=== PATIENT | male | born 1960 | race Caucasian/White ===

== ENCOUNTER → 2016-06-06 | Outpatient (REF) ==
[~2016-06-06] MED LIST: ASHW500C PO; CHRO400T4 PO; GINK120C4 PO; MAGNESIUM OXIDE; OMEGA XL; POTA99TA PO; SERRAPEPTASE; VITA1CAP7 PO; [UNRECOGNIZED DRUG - CODE] PO; [UNRECOGNIZED DRUG - CODE] PO; [UNRECOGNIZED DRUG - CODE] XX; [UNRECOGNIZED DRUG - OTHER]; [UNRECOGNIZED DRUG - OTHER]; [UNRECOGNIZED DRUG - OTHER]; [UNRECOGNIZED DRUG - OTHER] PO
--- NOTE | 2016-06-06 13:02 | REP ---
Lumbosacral spine series and 03/13, three view exam Indication: degenerative disc disease, disability Comparison: Lumbosacral spine series 09/30/14 performed at [facility]. Findings: There has been previous bilateral posterior pedicular fusion at L5-S1 with vertical stabilization lyndsay and bilateral transverse fixation screws at L5 and S1. There is a interbody disc cage within the L5 S1 disc space. There is moderate narrowing of L5 S1 disc space, stable. There is no acute fracture. Remainder the disc spaces are well maintained. Visualized portions of the SI joints are intact. Impression: Previous posterior fusion with L5 and S1 with interbody disc cage. There is persistent 5 mm or grade 1 anterolisthesis of L5 on S1. Moderate degenerative disc changes are seen at the L5 -S1 disc space. Findings are similar to prior study . Signed by Sarah St MD 06/06/2016 12:53 P
== END ==
LOC: M SMT 12:29
PROVIDERS: ATTEND Internal Medicine
DX: Z02.71 Encounter for disability determination (principal)

== ENCOUNTER → 2020-08-31 | Outpatient (CLI) | payer OTHER, MEDICAID ==
[~2020-08-31] MED LIST changes: +D-3-50003 PO; +GINK120C3 PO; -GINK120C4 PO; -VITA1CAP7 PO
--- NOTE | 2020-08-31 16:28 | REP ---
INDICATION: OCULAR PAIN, BILATERAL. COMPARISON: None. TECHNIQUE: Axial T1, T2, FLAIR, and diffusion-weighted images obtained. FINDINGS: No evidence of restricted diffusion to suggest acute infarction. No gradient echo susceptibility to suggest hemorrhage. The ventricles and extra-axial CSF spaces are within normal limits. No mass effect or midline shift. No abnormal fluid collections. Limited views of the orbits demonstrate the globes and orbits within normal limits. Retro-orbital fat appears unremarkable. IMPRESSION: No acute findings. Normal examination. <Electronically signed by Jose Antonio Carrillo > 08/31/20 [id number]
--- NOTE | 2020-08-31 16:29 | REP ---
INDICATION: OCULAR PAIN, BILATERAL. COMPARISON: None. TECHNIQUE: Dedicated views of the orbits include axial T1 and T2 weighted images, as well as coronal STIR T2 and coronal STIR images. FINDINGS: Globes and orbits appear unremarkable. Retro-orbital soft tissues appear unremarkable. Visualized intracranial structures appear unremarkable. Paranasal sinuses appear clear. IMPRESSION: Normal examination. No findings to explain the patient's symptoms. <Electronically signed by Jose Antonio Carrillo > 08/31/20 [id number]
== END ==
LOC: M PLARAD 14:32
PROVIDERS: ATTEND Ophthalmology
DX: H57.13 Ocular pain, bilateral (principal)

== ENCOUNTER 2020-09-12 15:17 | Observation (INO) | payer OTHER, MEDICAID ==
[~2020-09-12] VITALS: Ht 185.4 cm; Wt 79.9 kg
[2020-09-12 16:11] LABS: VENOUS BASE EXCESS 1.1 (-2.0-2.0); VENOUS HCO3 25.6 MEQ/L (23.0-27.0); VENOUS O2 SATURATION 49.2 % (60.0-80.0); VENOUS PARTIAL PRESSURE CO2 40.4 mmHg (38.0-50.0); VENOUS PARTIAL PRESSURE O2 25.2 mmHg (30.0-50.0); VENOUS STANDARD HCO3 24.1 MEQ/L; VENOUS TOTAL CO2 26.9 MEQ/L (24.0-28.0)
[2020-09-12 16:18] LABS: BASO % 0.2 % (0.0-1.0); HEMATOCRIT 46.2 % (42.0-52.0); HEMOGLOBIN 15.8 g/dl (13.5-17.5); LYMPH # 0.8 10^3/uL (1.5-5.0); LYMPH % 12.9 % (24.0-44.0); MEAN CORPUSCULAR HEMOGLOBIN 31.2 pg (27.0-33.0); MEAN CORPUSCULAR HGB CONC 34.2 g/dl (32.0-36.5); MEAN CORPUSCULAR VOLUME 91.3 fl (80.0-96.0); MONO # 0.4 10^3/uL (0.0-0.8); MONO % 6.1 % (2.0-8.0); NEUTROPHILS # 4.8 10^3/uL (1.5-8.5); PLATELET COUNT, AUTOMATED 113 10^3/uL (150-450); RED BLOOD COUNT 5.06 10^6/uL (4.30-6.10); WHITE BLOOD COUNT 6.1 10^3/uL (4.0-10.0)
--- NOTE | 2020-09-12 16:25 | REP ---
INDICATION: DYSPNEA/COUGH. COMPARISON: Comparison chest x-ray 21 April 2015. TECHNIQUE: Portable upright AP chest radiograph. FINDINGS: There is a granulomatous calcification in the left mid lung field. There is linear fibrosis versus platelike atelectasis in the left base and right perihilar region. No acute infiltrate is seen. Pleural angles are sharp. Cardiomediastinal silhouette is unremarkable.. Monitoring electrodes are noted. IMPRESSION: Right perihilar and left base platelike atelectasis. Old granuloma on the left. Otherwise no acute disease.. <Electronically signed by Colin Herrera > 09/12/20 [id number]
[2020-09-12] MEDS ORDERED: ONDANSETRON 4MG/2ML VIAL IV ONE (16:45)
[2020-09-12] MEDS ORDERED: ACETAMINOPHEN *IV* 1,000 MG in IV 1 EA IV ONE (16:45)
[2020-09-12 16:52] LABS: ALBUMIN 3.3 GM/DL (3.2-5.2); ALT/SGPT 43 U/L (12-78); BILIRUBIN,DIRECT 0.3 MG/DL (0.0-0.2); BILIRUBIN,TOTAL 0.9 MG/DL (0.2-1.0); CK-MB VALUE MASS < 1.0 NG/ML (<3.6); CPK CREATINE PHOSPHOKINASE 99 U/L (39-308); MB/CK RELATIVE INDEX 1.01 (< OR =4); NT-PRO BNP 69 PG/ML (<125); THYROXINE (T4) 6.6 UG/DL (4.5-12.0); TOTAL PROTEIN 6.5 GM/DL (6.4-8.2); TROPONIN I < 0.02 NG/ML (< 0.10)
[2020-09-12 18:15] LABS: C REACTIVE PROTEIN QUANTITATIV 4.14 MG/DL (0.00-0.30); FERRITIN 1128 NG/ML (26-388); LDH LACTATE DEHYDROGENASE 401 U/L (87-241)
[2020-09-12] MEDS ORDERED: dexameTHASONE 20MG/5ML VIAL (J1100 PER 1MG) IV ONE (18:43)
[2020-09-12] MEDS ORDERED: ONDANSETRON 4MG/2ML VIAL IV PRN (19:15)
[2020-09-12] MEDS ORDERED: MOM 30ML SUSPENSION UDC PO ONE (19:15)
[2020-09-12] MEDS ORDERED: COMBIVENT RESPIMAT 100-20MCG INHALER 4GM INH PRN (19:15)
[2020-09-12] MEDS ORDERED: NS 1,000 ML IV ONE (19:15)
[2020-09-12] MEDS ORDERED: SENNA 8.6 MG TAB (SENOKOT) PO PRN (19:15)
--- NOTE | 2020-09-12 19:23 | HPEPDOC ---
[facility] Medical History & Physical Date of Admission Sep 12, 2020 Date of Service: Sep 12, 2020 Attending Physician: SHUN ABRAHAM MD History and Physical CHIEF COMPLAINT: [59 y/o male with a c/c of abdominal pain, sob x3-4 weeks.] HISTORY OF PRESENT ILLNESS: [This is an otherwise healthy 59 y/o male with a pmh of htn who presents to our ED today 09/12 with a chief complaint of continued abd pain and worsening sob x3-4 weeks. Patient states that 3-4 weeks ago he began to have nonlocalized abdominal pain and malaise that has steadily gotten worse. He began to take off work due to his symptoms and has had a drastic decrease in his ability to perform daily tasks. Patient has been seen twice at [facility] for his symptoms and has had two negative evaluations including ct scans of his abdomen. Patient states that he had an endoscopy and colonoscopy about 5 weeks ago but these were routine due to family hx of colon ca and were unremarkable. Patient states that his symptoms continue to increase in intensity and now he is having profound weakness, increased sob, fever. Patient also complains of constipation, last bm reportedly one week ago. Patient has also had poor oral intake. Patient states he feels like he is going to . Patient denies chest pains, vomiting, syncope, dizziness, lightheadedness, lower extermity pain, edema, rash, dysuria.] PAST MEDICAL HISTORY: 1. [See HPI PAST SURGICAL HISTORY: 1. [Spinal fusion]. SOCIAL HISTORY: Tobacco use:[Raquel] ETOH: [Denies] Illicit drug use: [Denies] FAMILY HISTORY: Colon Ca ALLERGIES: Please see below. REVIEW OF SYSTEMS: CONSTITUTIONAL: [See HPI]. HEENT: [Denies productive cough, rest see hpi]. CARDIOVASCULAR: [See HPI]. RESPIRATORY: [See HPI]. GASTROINTESTINAL: [See HPI]. GENITOURINARY: [See HPI]. SKIN: [Denies rash]. MUSCULOSKELETAL: [Denies acute joint pain]. NEUROLOGICAL: [Denies paresthesias]. ENDOCRINE: [Denies hx of dm]. HEMATOLOGIC/LYMPHATIC: [Denies edema, easy bruising]. HOME MEDICATIONS: Please see below. PHYSICAL EXAMINATION: VITAL SIGNS: Please see below GENERAL APPEARANCE: [This is a fatigued and ill appearing 59 year old male. He is laying in bed with mildly increased work of breathing]. HEENT: [No mass or lesion. EOMI. No scleral icterus or conjunctival erythema. Oral mucosa dry.]. CARDIOVASCULAR: [Regular rate, rhythm. No murmurs, rubs, gallops]. LUNGS: [Decreased breath sounds, crackles at b/l lung bases.]. ABDOMEN: [Soft, tender throughout]. MUSCULOSKELETAL: [No joint deformity]. EXTREMITIES: [No peripheral edema appreciated. No skin changes. Pulses intact. no clubbing, cyanosis.]. NEUROLOGICAL: [Speech clear. A+Ox3. No focal deficits.]. PSYCHIATRIC: [Depressed mood. Affect appears appropriate.]. LABORATORY DATA: See below. IMAGING: [Chest x-ray: FINDINGS: There is a granulomatous calcification in the left mid lung field. There is linear fibrosis versus platelike atelectasis in the left base and right perihilar region. No acute infiltrate is seen. Pleural angles are sharp. Cardiomediastinal silhouette is unremarkable.. Monitoring electrodes are noted. IMPRESSION: Right perihilar and left base platelike atelectasis. Old granuloma on the left. Otherwise no acute disease..] MICROBIOLOGY: Please see below. ASSESSMENT: [This is a 59 y/o male with no significant pmh who reports a 3-4 week hx of abdominal pain that eventually evolved into sob, fatigue and weakness. Patient has a family hx of colon ca but had routine endoscopy/colonoscopy just before symptom onset. Patient found to be covid+, hypoxic on exertion in the ED.]. . PLAN: 1. [COVID 19 - Will admit to covid floor with tele, pulse oximetry - patient's cxr shows minimal disease, can consider chest ct/cta if patient continues with hypoxia - Patient hypoxic on exertion with readings in low 90s, during my exam patient was at around 92-95% on RA - Will begin supplemental o2 if patient continues to become hypoxic - combivents, tylenol for sx relief - will begin dexamethasone, remdesevir as symptomatology is still evolving in this patient and he is hypoxic on vbg - will trend inflammatory markers, white count, cardiac markers 2. ABD pain - most likely secondary to COVID infection. Patient has had multiple negative scans at other hospitals. - Will repeat stool occult here - Will begin iv protonix, zofran - milk of mag, senna for constipation - will begin IVF 3. HTN - bp is acceptable for now 4. DVT prophylaxis - Lovenox]. Vital Signs Vital Signs Date Time Temp Pulse Resp B/P (MAP) Pulse Ox O2 Delivery O2 Flow Rate FiO2 09/12/20 17:59 102.9 86 20 115/66 (82) 92 Room Air Laboratory Data Labs 24H Laboratory Tests 2 09/12/20 15:38: Blood Gas Bicarbonate Standard 24.1, Venous Blood pH 7.420, Venous Blood Partial Pressure CO2 40.4, Venous Blood Partial Pressure O2 25.2L, Venous Blood Total Carbon Dioxide 26.9, Venous Blood HCO3 25.6, Venous Blood Oxygen Saturation 49.2L, Venous Blood Base Excess 1.1, Lactic Acid Level 1.3 09/12/20 15:57: D-Dimer, Quantitative 948.16H 09/12/20 15:59: Immature Granulocyte % (Auto) 0.8, Neutrophils (%) (Auto) 80.0H, Lymphocytes (%) (Auto) 12.9L, Monocytes (%) (Auto) 6.1, Eosinophils (%) (Auto) 0.0, Basophils (%) (Auto) 0.2, Neutrophils # (Auto) 4.8, Lymphocytes # (Auto) 0.8L, Monocytes # (Auto) 0.4, Eosinophils # (Auto) 0.0, Basophils # (Auto) 0.0, Nucleated Red Blood Cells % (auto) 0.0, Ferritin 1128H, Total Bilirubin 0.9, Direct Bilirubin 0.3H, Aspartate Amino Transf (AST/SGOT) 55H, Alanine Aminotransferase (ALT/SGPT) 43, Alkaline Phosphatase 78, Lactate Dehydrogenase 401H, Total Creatine Kinase 99, Creatine Kinase MB < 1.0, Creatine Kinase MB Relative Index 1.01, Troponin I < 0.02, C-Reactive Protein, Quantitative 4.14H, MZ-Bud-J-Type Natriuretic Peptide 69, Total Protein 6.5, Albumin 3.3, Albumin/Globulin Ratio 1.0, Thyroid Stimulating Hormone (TSH) 1.720, Thyroxine (T4) 6.6 09/12/20 16:08: POC Glucose (Misc Panel) 103, POC Sodium (Misc Panel) 136, POC Potassium (Misc Panel) 3.8, POC Chloride (Misc Panel) 99, POC Total CO2 (Misc Panel) 25.0, POC Blood Urea Nitrogen (Misc Panel 17, POC Ionized Calcium (Misc Panel) 4.5, POC Creatinine (Misc Panel) 1.1, POC Hematocrit (Misc Panel) 45.0 CBC/BMP Laboratory Tests 09/12/20 15:59 Microbiology Microbiology 09/12/20 Respiratory Virus Panel (PCR) (EFRAIN) - Final, Complete SARS-CoV-2 (COVID 19) 09/12/20 Blood Culture, Received Pending Home Medications No Active Prescriptions or Reported Meds Allergies Coded Allergies: No Known Drug Allergies (Verified Allergy, Unknown, 09/12/20) A-FIB/CHADSVASC A-FIB History Current/History of A-Fib/PAF?: No Attending Note Attending Note is a 59 yr old M w a hx of HTN who presented w c/o abdominal pain, and dyspnea and was found to have COVID 19 with a PO2 of 25 (low on VBG). Rest per CHUY Vickers's H&P ANDRES VICKERS Sep 12, 2020 19:23 SHUN ABRAHAM MD Sep 13, 2020 01:14
[2020-09-12] MEDS ORDERED: MOM 30ML SUSPENSION UDC PO PRN (20:45)
[2020-09-12 21:51] VITALS: BP 106/61
[2020-09-12 22:00] VITALS: BP 106/61; O2SAT 92
[2020-09-12] MEDS ORDERED: REMDESIVIR 200 MG in NS 250 ML IV ONE (22:00)
[2020-09-12 22:04] VITALS: BP 106/61
[2020-09-13] VITALS (12 sets, daily range): BP systolic 91–120; BP diastolic 52–65; O2SAT 92–94
[2020-09-13] MEDS ORDERED: SODIUM CHLORIDE 0.9% INJ 10 ML SYR IV ONE
[2020-09-13] MEDS: ACETAMINOPHEN TAB 650MG DOSE (2X325MG) PO PRN (00:48)
[2020-09-13] MEDS ORDERED: NS 1,000 ML IV ONE (01:15)
[2020-09-13] MEDS ORDERED: MIRALAX *UNIT DOSE* 17GM PACKET PO PRN (03:35)
--- NOTE | 2020-09-13 06:18 | IPNPDOC ---
Text Note Date of Service The patient was seen on 09/13/20. NOTE RNs said pt was having chest pain. EKGs showed bradycardia rate of [address] changes # f/u trops and Echo to r/o COVID induced cardiomyopathy VS,Fishbone, I+O VS, Fishbone, I+O Laboratory Tests 09/12/20 15:59 Vital Signs Date Time Temp Pulse Resp B/P (MAP) Pulse Ox O2 Delivery O2 Flow Rate FiO2 09/13/20 06:04 94 Room Air 09/13/20 05:51 97.0 51 19 101/54 (70) I&O- Last 24 Hours up to 6 AM 09/13/20 06:00 Intake Total 120 ml Output Total 400 ml Balance -280 ml SHUN ABRAHAM MD Sep 13, 2020 06:18
[2020-09-13] MEDS: ENOXAPARIN 80MG/0.8ML SYRINGE (J1650 PER 10MG) SC SCH ×2 (06:57→18:17)
[2020-09-13] MEDS: MIRALAX *UNIT DOSE* 17GM PACKET PO SCH ×2 (06:57→20:07)
[2020-09-13] MEDS: dexameTHASONE 20MG/5ML VIAL (J1100 PER 1MG) IV SCH (08:15)
[2020-09-13] MEDS: PANTOPRAZOLE 40MG VIAL (C9113 PER 1) IV SCH (08:15)
[2020-09-13 08:45] LABS: HEMATOCRIT 47.1 % (42.0-52.0); HEMOGLOBIN 16.2 g/dl (13.5-17.5); MEAN CORPUSCULAR HEMOGLOBIN 31.3 pg (27.0-33.0); MEAN CORPUSCULAR HGB CONC 34.4 g/dl (32.0-36.5); MEAN CORPUSCULAR VOLUME 91.1 fl (80.0-96.0); PLATELET COUNT, AUTOMATED 132 10^3/uL (150-450); RED BLOOD COUNT 5.17 10^6/uL (4.30-6.10); WHITE BLOOD COUNT 4.4 10^3/uL (4.0-10.0)
[2020-09-13] MEDS ORDERED: ENOXAPARIN 40MG/0.4ML SYRINGE (J1650 PER 10MG) SC SCH (09:00)
[2020-09-13] MEDS ORDERED: dexameTHASONE 4 MG/ML 1ML VIAL (J1100 PER 1MG) IV SCH (09:00)
[2020-09-13 09:15] LABS: ALBUMIN 3.1 GM/DL (3.2-5.2); ALT/SGPT 44 U/L (12-78); BILIRUBIN,DIRECT 0.3 MG/DL (0.0-0.2); BILIRUBIN,TOTAL 0.8 MG/DL (0.2-1.0); BLOOD UREA NITROGEN 21 MG/DL (7-18); CALCIUM LEVEL 8.4 MG/DL (8.5-10.1); CARBON DIOXIDE LEVEL 24 MEQ/L (21-32); CHLORIDE LEVEL 108 MEQ/L (98-107); CREATININE FOR GFR 0.74 MG/DL (0.70-1.30); GLOMERULAR FILTRATION RATE > 60.0 (>56); GLUCOSE, FASTING 130 MG/DL (70-100); MAGNESIUM LEVEL 2.5 MG/DL (1.8-2.4); POTASSIUM SERUM 4.2 MEQ/L (3.5-5.1); SODIUM LEVEL 139 MEQ/L (136-145); TOTAL PROTEIN 6.1 GM/DL (6.4-8.2); TROPONIN I < 0.02 NG/ML (< 0.10)
--- NOTE | 2020-09-13 09:22 | ECGEPIP ---
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
[2020-09-13 09:46] LABS: ATYPICAL LYMPH 3 % (0-5); CRENATED RBC 1+; LYMPHOCYTES 6 % (16-44); MONOCYTES 9 % (0-5); NEUTROPHILS 76 % (28-66); PLATELET ESTIMATE NORMAL (NORMAL)
--- NOTE | 2020-09-13 11:32 | IPNPDOC ---
Date Seen The patient was seen on 09/13/20. Progress Note SUBJECTIVE: Denies any fever, shortness of breath, dyspnea on exertion, saturating 90-92% on room air at the lowest. At home, patient had headaches, myalgias, generalized weakness, abdominal pain, decreased appetite. This morning, Patient's appetite has resumed and he tolerated his diet well. He has no diarrhea, nausea, vomiting or abdominal pain. OBJECTIVE PHYSICAL EXAMINATION: VITAL SIGNS: Please see below. GENERAL: No conversational dyspnea awake, alert, oriented to person, place and time. Speaking in full sentences, no distress HEENT: No JVD, thyromegaly, cervical lymphadenopathy. Moist mucous membranes . Lungs Clear to auscultation. Wheezing, rales or rhonchi . Heart S1, S2, sinus rhythm ABDOMINAL: Soft, nontender, nondistended, positive bowel sounds EXTREMITIES: No cyanosis, clubbing or pitting edema LABORATORY DATA, IMAGING STUDIES, MICROBIOLOGY: Please see below. ASSESSMENT AND PLAN: 59-year-old with hypertension and spinal fusion admitted due to coronavirus infection Coronavirus 19 pneumonia -On IV remdesevir, iv decadron, asa, lovenox -tolerating his diet. -not requiring oxygen HTN -controlled Spinal fusion -chronic DISPOSITION: Discharge in the morning if stable overnight VS, [facility]/I&O Vital Signs Date Time Temp Pulse Resp B/P (MAP) Pulse Ox O2 Delivery O2 Flow Rate FiO2 09/13/20 08:00 93 Room Air 09/13/20 07:02 96.5 59 18 120/65 (83) I&O- Last 24 Hours up to 6 AM 09/13/20 06:00 Intake Total 120 ml Output Total 400 ml Balance -280 ml Laboratory Data 24H LABS Laboratory Tests 2 09/12/20 15:38: Blood Gas Bicarbonate Standard 24.1, Venous Blood pH 7.420, Venous Blood Partial Pressure CO2 40.4, Venous Blood Partial Pressure O2 25.2L, Venous Blood Total C arbon Dioxide 26.9, Venous Blood HCO3 25.6, Venous Blood Oxygen Saturation 49.2L, Venous Blood Base Excess 1.1, Lactic Acid Level 1.3 09/12/20 15:57: D-Dimer, Quantitative 948.16H 09/12/20 15:59: Immature Granulocyte % (Auto) 0.8, Neutrophils (%) (Auto) 80.0H, Lymphocytes (%) (Auto) 12.9L, Monocytes (%) (Auto) 6.1, Eosinophils (%) (Auto) 0.0, Basophils (%) (Auto) 0.2, Neutrophils # (Auto) 4.8, Lymphocytes # (Auto) 0.8L, Monocytes # (Auto) 0.4, Eosinophils # (Auto) 0.0, Basophils # (Auto) 0.0, Nucleated Red Blood Cells % (auto) 0.0, Ferritin 1128H, Total Bilirubin 0.9, Direct Bilirubin 0.3H, Aspartate Amino Transf (AST/SGOT) 55H, Alanine Aminotransferase (ALT/SGPT) 43, Alkaline Phosphatase 78, Lactate Dehydrogenase 401H, Total Creatine Kinase 99, Creatine Kinase MB < 1.0, Creatine Kinase MB Relative Index 1.01, Troponin I < 0.02, C-Reactive Protein, Quantitative 4.14H, LR-Utz-H-Type Natriuretic Peptide 69, Total Protein 6.5, Albumin 3.3, Albumin/Globulin Ratio 1.0, Thyroid Stimulating Hormone (TSH) 1.720, Thyroxine (T4) 6.6 09/12/20 16:08: POC Glucose (Misc Panel) 103, POC Sodium (Misc Panel) 136, POC Potassium (Misc Panel) 3.8, POC Chloride (Misc Panel) 99, POC Total CO2 (Misc Panel) 25.0, POC Blood Urea Nitrogen (Misc Panel 17, POC Ionized Calcium (Misc Panel) 4.5, POC Creatinine (Misc Panel) 1.1, POC Hematocrit (Misc Panel) 45.0 09/12/20 23:06: Urine Color BLANKA, Urine Appearance HAZY, Urine pH 6.0, Urine Specific [place] 1.029, Urine Protein 2+H, Urine Glucose (UA) NEGATIVE, Urine Ketones 1+H, Urine Blood NEGATIVE, Urine Nitrite NEGATIVE, Urine Bilirubin NEGATIVE, Urine Urobilinogen 4.0H, Urine Leukocyte Esterase NEGATIVE, Urine WBC (Auto) 2, Urine RBC (Auto) 1, Urine Hyaline Casts (Auto) 0, Urine Bacteria (Auto) NEGATIVE, Urine Squamous Epithelial Cells 0, Urine Transitional Epithelial Cells <1, Urine Mucus (Auto) SMALL, Urine Sperm (Auto) 09/13/20 05:51: Bedside Glucose (Misc Panel) 157H 09/13/20 08:02: Neutrophils (%) (Auto) , Nucleated Red Blood Cells % (auto) 0.0, Neutrophils 76H, Band Neutrophils 6, Lymphocytes (Manual) 6L, Monocytes (Manual) 9H, Atypical Lymphocytes 3, Crenated Cell 1+, Platelet Estimate NORMAL, Anion Gap 7L, Glomerular Filtration Rate > 60.0, Calcium Level 8.4L, Magnesium Level 2.5H, Total Bilirubin 0.8, Direct Bilirubin 0.3H, Aspartate Amino Transf (AST/SGOT) 49H, Alanine Aminotransferase (ALT/SGPT) 44, Alkaline Phosphatase 70, Troponin I < 0.02, Total Protein 6.1L, Albumin 3.1L, Albumin/Globulin Ratio 1.0 CBC/BMP Laboratory Tests 09/12/20 15:59 09/13/20 08:02 Microbiology Microbiology 09/13/20 Stool Occult Blood (EFRAIN) - Final, Complete 09/12/20 Blood Culture, Received Pending 09/12/20 Respiratory Virus Panel (PCR) (EFRAIN) - Final, Complete SARS-CoV-2 (COVID 19) 09/12/20 Blood Culture, Received Pending GUIDO PULLIAM MD Sep 13, 2020 11:32
[2020-09-13] MEDS ORDERED: REMDESIVIR 100 MG in NS 250 ML IV SCH ×4 (22:00)
[2020-09-13] MEDS ORDERED: SODIUM CHLORIDE 0.9% INJ 10 ML SYR IV SCH (23:00)
[2020-09-14] VITALS: BP 110/66; O2SAT 92
[2020-09-14] MEDS ORDERED: REMDESIVIR 100 MG in NS 250 ML IV SCH (01:15)
[2020-09-14] MEDS ORDERED: SODIUM CHLORIDE 0.9% INJ 10 ML SYR IV SCH (02:15)
[2020-09-14 04:00] VITALS: BP 102/68; O2SAT 93
[2020-09-14] MEDS: ENOXAPARIN 80MG/0.8ML SYRINGE (J1650 PER 10MG) SC SCH (06:14)
[2020-09-14] MEDS: ACETAMINOPHEN TAB 650MG DOSE (2X325MG) PO PRN (06:14)
[2020-09-14] MEDS: MIRALAX *UNIT DOSE* 17GM PACKET PO SCH (07:53)
[2020-09-14] MEDS: PANTOPRAZOLE 40MG VIAL (C9113 PER 1) IV SCH (07:53)
[2020-09-14] MEDS: dexameTHASONE 20MG/5ML VIAL (J1100 PER 1MG) IV SCH (07:53)
[2020-09-14 08:00] VITALS: O2SAT 95
[2020-09-14 08:43] LABS: HEMATOCRIT 43.4 % (42.0-52.0); HEMOGLOBIN 14.9 g/dl (13.5-17.5); MEAN CORPUSCULAR HEMOGLOBIN 31.1 pg (27.0-33.0); MEAN CORPUSCULAR HGB CONC 34.3 g/dl (32.0-36.5); MEAN CORPUSCULAR VOLUME 90.6 fl (80.0-96.0); PLATELET COUNT, AUTOMATED 173 10^3/uL (150-450); RED BLOOD COUNT 4.79 10^6/uL (4.30-6.10); WHITE BLOOD COUNT 12.8 10^3/uL (4.0-10.0)
[2020-09-14 08:54] LABS: PROTHROMBIN TIME 13.4 SECONDS (12.5-14.3)
[2020-09-14 08:55] LABS: PARTIAL THROMBOPLASTIN TIME 35.9 SECONDS (24.2-38.5)
[2020-09-14 09:06] LABS: ALBUMIN 2.8 GM/DL (3.2-5.2); ALT/SGPT 43 U/L (12-78); BILIRUBIN,DIRECT 0.2 MG/DL (0.0-0.2); BILIRUBIN,TOTAL 0.6 MG/DL (0.2-1.0); BLOOD UREA NITROGEN 20 MG/DL (7-18); CALCIUM LEVEL 8.4 MG/DL (8.5-10.1); CARBON DIOXIDE LEVEL 22 MEQ/L (21-32); CHLORIDE LEVEL 111 MEQ/L (98-107); CPK CREATINE PHOSPHOKINASE 64 U/L (39-308); CREATININE FOR GFR 0.78 MG/DL (0.70-1.30); GLOMERULAR FILTRATION RATE > 60.0 (>56); GLUCOSE, FASTING 123 MG/DL (70-100); LDH LACTATE DEHYDROGENASE 358 U/L (87-241); MAGNESIUM LEVEL 2.2 MG/DL (1.8-2.4); POTASSIUM SERUM 4.4 MEQ/L (3.5-5.1); SODIUM LEVEL 141 MEQ/L (136-145); TROPONIN I < 0.02 NG/ML (< 0.10)
[2020-09-14 09:07] LABS: FERRITIN 734 NG/ML (26-388); NT-PRO BNP 183 PG/ML (<125)
[2020-09-14 09:18] LABS: LYMPHOCYTES 6 % (16-44); NEUTROPHILS 94 % (28-66); PLATELET ESTIMATE NORMAL (NORMAL)
[2020-09-14 11:56] VITALS: BP 109/61
[2020-09-14 12:00] VITALS: O2SAT 93
[2020-09-14] MEDS ORDERED: VENTAER INH (13:16)
--- NOTE | 2020-09-14 20:19 | ECGEPIP ---
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
[2021-09-13] MEDS ORDERED: REMDESIVIR 100 MG in NS 250 ML IV SCH (22:00)
[2021-09-13] MEDS ORDERED: SODIUM CHLORIDE 0.9% INJ 10 ML SYR IV SCH (23:00)
== END 2020-09-14 14:25 | disposition home health service (06) ==
LOC: M ED 15:17 → M ED INP 15:18 → ENRESERV 20:45 → M 4MAIN 21:42
PROVIDERS: ADMIT Internal Medicine; ATTEND General Practice
DX: U07.1 COVID-19 (principal); J12.82 Pneumonia due to coronavirus disease 2019; R06.02 Shortness of breath; R09.02 Hypoxemia; I10 Essential (primary) hypertension; R07.9 Chest pain, unspecified; R00.1 Bradycardia, unspecified; R10.9 Unspecified abdominal pain; K59.00 Constipation, unspecified; Z98.1 Arthrodesis status; Z80.0 Family history of malignant neoplasm of digestive organs
CPT/HCPCS: 36415; 71045; 80047; 80048; 80076; 81001; 82270; 82550; 82553; 82728; 82803; 83605; 83615; 83735; 83880; 84145; 84436; 84443; 84484; 85025; 85379; 85384; 85610; 85730; 86140; 87040; 87798; 93005; 93041; 96361; 96365; 96366; 96372; 96375; 96376; 99285; C9113; G0378; J0131; J1100; J1650; J2405